=== PATIENT | female | born 1930 | race Caucasian/White ===

== ENCOUNTER 2018-07-06 14:34 | Outpatient (CLI) | payer MEDICARE, OTHER ==
[2018-07-06 15:18] LABS: #Basophils 0.2 thou/uL (0.0-0.2); #Eosinphils 0.5 thou/uL (0.0-0.7); #Lymphocytes 2.5 thou/uL (1.20-3.40); #Neutrophils 10.5 thou/uL (1.40-6.50); %Basophils 1.6 % (0.0-1.0); %Eosinophils 3.4 % (0.0-10.0); %Lymphocytes 16.7 % (21.0-51.0); %Monocytes 7.1 % (0.0-10.0); %Neutrophils 71.3 % (42.0-75.0); Hemoglobin 11.7 g/dL (12.0-16.0); Mean Corpuscular Hemoglobin 27.7 pg (27.0-31.0); Mean Corpuscular Volume 89.2 fL (78.0-98.0); Mean Platelet Volume 7.4 fL (7.4-10.4); Platelet Count 262 thou/uL (130-400); RBC Distribution Width 16.6 % (11.5-14.5); Red Blood Cell (RBC) Count 4.22 mill/uL (4.20-5.40); White Blood Cell (WBC) Count 14.7 thou/uL (4.8-10.8)
[2018-07-06 15:20] LABS: ALT (SGPT) 13 U/L (8-55); AST (SGOT) 15 U/L (5-34); Albumin 3.5 g/dL (3.4-4.8); Alkaline Phosphatase 86 U/L (40-150); Anion Gap 16 mmol/L (10-20); BUN (Urea Nitrogen) 21 mg/dL (9.8-20.1); Bilirubin, Total 0.6 mg/dL (0.2-1.2); Calc. Creatinine Clearance 0 mL/min (70-130); Calcium 8.9 mg/dL (7.8-10.44); Carbon Dioxide 23 mmol/L (23-31); Chloride 97 mmol/L (98-107); Estimated GFR-MDRD 73; Globulin 3.4 g/dL (2.4-3.5); Glucose 113 mg/dL (83-110); Magnesium 2.3 mg/dL (1.6-2.6); Potassium 3.8 mmol/L (3.5-5.1); Protein, Total 6.9 g/dL (6.0-8.3); Sodium 132 mmol/L (136-145)
--- NOTE | 2018-07-06 16:41 | RAD ---
CHEST TWO VIEWS: 07/06/2018 HISTORY: Shortness of breath on exertion. COMPARISON: 05/04/2016 FINDINGS: There is no pneumothorax, pleural fluid, focal consolidation, or alveolar edema. Heart and mediastin al contours are stable. Evidence of prior multilevel lumbar spine kyphoplasty noted. IMPRESSION: No acute findings. POS: [facility]
== END 2018-07-06 14:35 | disposition home or self-care (01) ==
LOC: SCSRAD 14:34
PROVIDERS: ATTEND Family Medicine
DX: R06.09 Other forms of dyspnea (principal); C90.02 Multiple myeloma in relapse; R00.0 Tachycardia, unspecified; R94.31 Abnormal electrocardiogram [ECG] [EKG]; R82.998 Other abnormal findings in urine
CPT/HCPCS: 36415; 71046; 80053; 82330; 83735; 85025

== ENCOUNTER 2018-07-15 10:51 | Emergency (ER) | payer MEDICARE, OTHER ==
[2018-07-15 11:43] LABS: #Basophils 0.1 thou/uL (0.0-0.2); #Eosinphils 0.4 thou/uL (0.0-0.7); #Lymphocytes 1.2 thou/uL (1.20-3.40); #Monocytes 0.7 thou/uL (0.11-0.59); #Neutrophils 5.6 thou/uL (1.40-6.50); %Basophils 1.1 % (0.0-1.0); %Eosinophils 4.7 % (0.0-10.0); %Lymphocytes 14.7 % (21.0-51.0); %Monocytes 8.8 % (0.0-10.0); %Neutrophils 70.7 % (42.0-75.0); Hemoglobin 11.8 g/dL (12.0-16.0); Mean Corpuscular HGB CONC 32.6 g/dL (32.0-36.0); Mean Corpuscular Volume 89.1 fL (78.0-98.0); Platelet Count 215 thou/uL (130-400); RBC Distribution Width 17.4 % (11.5-14.5); Red Blood Cell (RBC) Count 4.07 mill/uL (4.20-5.40); White Blood Cell (WBC) Count 7.9 thou/uL (4.8-10.8)
[2018-07-15 11:56] LABS: ALT (SGPT) 13 U/L (8-55); AST (SGOT) 13 U/L (5-34); Albumin 3.3 g/dL (3.4-4.8); Alkaline Phosphatase 79 U/L (40-150); Anion Gap 16 mmol/L (10-20); BUN (Urea Nitrogen) 21 mg/dL (9.8-20.1); Bilirubin, Total 0.4 mg/dL (0.2-1.2); Calc. Creatinine Clearance 0 mL/min (70-130); Calcium 8.8 mg/dL (7.8-10.44); Carbon Dioxide 19 mmol/L (23-31); Chloride 104 mmol/L (98-107); Estimated GFR-MDRD 77; Glucose 112 mg/dL (83-110); Protein, Total 6.3 g/dL (6.0-8.3); Sodium 135 mmol/L (136-145)
--- NOTE | 2018-07-15 13:20 | RAD ---
PORTABLE CHEST: HISTORY: Dyspnea. FINDINGS: Lung hoff are clear. No evidence of vascular congestion, effusion, or infiltrate. Heart and media stinum unremarkable. IMPRESSION: No acute process. POS: [facility]
--- NOTE | 2018-07-15 14:50 | CT ---
CT ABDOMEN AND PELVIS WITH IV CONTRAST: Multiple axial tomograms were obtained through the abdomen and pelvis with IV enhancement. INDICATION: Abdominal pain. FINDINGS: Lung bases clear. Small cystic lesions are seen in the liver. The liver and pancreas otherwise appear unremarkable. T here is a small low-density focus in the posterior spleen measuring 8-9 mm which is indeterminate. The gallbladder shows heterogeneity in the lumen with evidence of a mildly peripherally calcified gal lstone measuring 1.3 cm. Gallbladder wall shows mild enhancement without significant thickening. There is mural thickening of the distal esophagus. Stomach unremarkable. There is abnormal low-density mass-like lesion seen in the gastrohepatic region which measures 2.6 cm width x 5.6 cm craniocaudal dimension in the coronal plane. There is evidence of a low-density mass in the precrural region posterior to the vena cava measuring 2.3 cm. Low density in the portocaval region. There are other small density lymph nodes. An aortocaval lymph node shows low density measu ring 1.2 cm and there are other paraaortic lymph nodes which are low density and mildly prominent. The small bowel loops appear normal caliber. Cecum is mildly distended and there is some questionabl e inflammatory change surrounding the cecum. Colon otherwise unremarkable. Aorta normal caliber. The adrenal glands and kidneys are unremarkable. The urinary bladder is unremarkable. However, vert ebroplasty procedures involving lumbar vertebrae. IMPRESSION: 1. 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 2. Mural thickening of the lower esophagus. Esophageal neoplasm with metastatic lymph nodes should be excluded. 3. Questionable inflammatory changes at the cecum. 4. Cholelithiasis. 5. Tiny low-density liver lesions suggest tiny cysts. 6. There is a tiny low-density focus in the spleen which is indeterminate measuring up to 8 mm. Met astatic focus cannot be excluded. POS: [facility]
== END 2018-07-15 14:22 | disposition home or self-care (01) ==
LOC: SCSER 10:51
DX: K52.9 Noninfective gastroenteritis and colitis, unspecified (principal); R59.9 Enlarged lymph nodes, unspecified; C90.00 Multiple myeloma not having achieved remission; Z79.899 Other long term (current) drug therapy
CPT/HCPCS: 36415; 71045; 74177; 80053; 83880; 84484; 85025; 85379; 93005; 96360